=== PATIENT | female | born 1945 | race Two or more races ===

== ENCOUNTER 2019-04-22 15:29 | Outpatient (CLI) | payer OTHER ==
[~2019-04-22] VITALS: Ht 157.5 cm; Wt 50.3 kg
== END 2019-04-22 17:17 | disposition home or self-care (01) ==
LOC: OFIC 805 15:29
DX: J38.2 Nodules of vocal cords (principal); K21.0 Gastro-esophageal reflux disease with esophagitis; R49.0 Dysphonia
CPT/HCPCS: 31575; 99203; G0463

== ENCOUNTER 2024-10-05 14:15 | Emergency (ER) | payer OTHER ==
[~2024-10-05] VITALS: Ht 134.6 cm; Wt 47.2 kg
[2024-10-05] MEDS ORDERED: EVISTA60 MG PO (14:58)
[2024-10-05] MEDS ORDERED: CALTRATE 600 +1 EAC1 PO (14:59)
[2024-10-05] MEDS ORDERED: CLINDAMYCIN PHOSPHATE 150 MG/ML (600mg) IM STA (17:57)
[2024-10-05] MEDS ORDERED: ACETAMINOPHEN 500 MG GEL..CAP PO STA (17:57)
[2024-10-05] MEDS ORDERED: KETOROLAC TROMETHAMINE 60 MG VIAL IM STA (17:57)
== END 2024-10-05 18:12 | disposition home or self-care (01) ==
LOC: ER 14:15
DX: L72.3 Sebaceous cyst (principal); Z91.012 Allergy to eggs
CPT/HCPCS: 96372; 99282; J1885; J3490